=== PATIENT | male | born 1985 | race Asian ===

== ENCOUNTER 2016-04-13 16:49 | Emergency (ER) | payer OTHER ==
[2016-04-13 17:01] VITALS: BP 131/78
[2016-04-13 18:03] LABS: Basophils % (Auto) 0.6 % (0.0-1.8); Eosinophils % (Auto) 4.2 % (0.0-4.3); Hematocrit 45.1 % (35.5-45.6); Hemoglobin 15.5 gm/dl (11.8-15.2); Mean Corpuscular HGB Conc 34 % (32-34); Mean Corpuscular Hemoglobin 31 pg (28-32); Mean Corpuscular Volume 89 fl (84-94); Platelet Count 225 K/mm3 (140-440); Red Blood Count 5.09 M/mm3 (3.65-5.03); Red Cell Distribution Width 12.3 % (13.2-15.2); White Blood Count 9.7 K/mm3 (4.5-11.0)
[2016-04-13 18:13] LABS: Anion Gap 17 mmol/L; BUN/Creatinine Ratio 17.14; Blood Urea Nitrogen 12 mg/dL (9-20); Calcium 9.4 mg/dL (8.4-10.2); Carbon Dioxide 28 mmol/L (22-30); Chloride 98.4 mmol/L (98-107); Glucose 121 mg/dL (75-100); Potassium 3.8 mmol/L (3.6-5.0); Sodium 140 mmol/L (137-145)
== END 2016-04-13 20:00 | disposition left against medical advice (07) ==
LOC: ED 16:49
DX: R07.9 Chest pain, unspecified (principal); R10.9 Unspecified abdominal pain; Z53.21 Procedure and treatment not carried out due to patient leaving prior to being seen by health care provider
CPT/HCPCS: 36415; 80048; 84484; 85025; 93005; 93010

== ENCOUNTER 2016-04-14 09:45 | Emergency (ER) | payer OTHER ==
[2016-04-14 10:21] LABS: Basophils % (Auto) 0.2 % (0.0-1.8); Eosinophils % (Auto) 3.5 % (0.0-4.3); Hematocrit 46.5 % (35.5-45.6); Hemoglobin 15.3 gm/dl (11.8-15.2); Mean Corpuscular HGB Conc 33 % (32-34); Mean Corpuscular Hemoglobin 30 pg (28-32); Mean Corpuscular Volume 90 fl (84-94); Platelet Count 219 K/mm3 (140-440); Red Blood Count 5.19 M/mm3 (3.65-5.03); Red Cell Distribution Width 12.3 % (13.2-15.2); White Blood Count 11.3 K/mm3 (4.5-11.0)
[2016-04-14 10:25] LABS: Bilirubin,Urine NEG (Negative); Blood,Urine NEG (Negative); Ketones,Urine NEG (Negative); Leukocyte Esterase,Urine NEG (Negative); Mucus,Urine 3+ /HPF; Nitrite,Urine NEG (Negative); Protein,Urine <15 mg/dL mg/dL (Negative); Urobilinogen,Urine < 2.0 mg/dL (<2.0)
[2016-04-14 10:36] LABS: Alanine Aminotransferase 16 units/L (7-56); Albumin 4.2 g/dL (3.9-5); Albumin/Globulin Ratio 1.4 %; Alkaline Phosphatase 87 units/L (35-129); Anion Gap 17 mmol/L; BUN/Creatinine Ratio 18.57; Bilirubin,Total 0.4 mg/dL (0.1-1.2); Blood Urea Nitrogen 13 mg/dL (9-20); Carbon Dioxide 24 mmol/L (22-30); Chloride 100.5 mmol/L (98-107); Glucose 105 mg/dL (75-100); Lipase 13 units/L (13-60); Potassium 4.4 mmol/L (3.6-5.0); Sodium 137 mmol/L (137-145); Total Protein 7.1 g/dL (6.3-8.2)
[2016-04-14] MEDS ORDERED: NACL 0.9% 1000 ML 1,000 ML IV ONE (10:50)
[2016-04-14] MEDS ORDERED: ZOFRAN IV ONE ×2 (10:50→11:57)
[2016-04-14] MEDS ORDERED: MORPHINE IV ONE (10:50)
[2016-04-14] MEDS ORDERED: PROTONIX IV ONE (11:57)
[2016-04-14] MEDS ORDERED: DILAUDID IV ONE (11:57)
--- NOTE | 2016-04-14 11:57 | Cat Scan Report ---
CT SCAN OF THE ABDOMEN AND PELVIS WITH CONTRAST: HISTORY: Right upper quadrant abdominal pain, epigastric pain. TECHNIQUE: Helical CT in 1.25mm intervals following IV contrast. Sagittal and coronal reconstructions. FINDINGS: The liver is normal in size and is without focal defect. No gallstones or biliary dilatation are noted. The spleen and pancreas demonstrate a normal size and attenuation with no evidence of abnormal mass. The kidneys are normal in size and position with no evidence of hydronephrosis or mass. The adrenal glands are normal. There is no intestinal obstruction or ascites. Normal appendix. The abdominal aorta is normal. No abnormalities are identified within the retroperitoneum or mesentery. There is no evidence of peritoneal air or fluid. There is no evidence of any abnormal masses or fluid collections within the pelvis. No adenopathy is identified. The bladder is normal. IMPRESSION: Unremarkable CT scan of the abdomen and pelvis with contrast.
--- NOTE | 2016-04-14 13:00 | Emergency Department Report ---
HPI - General Chief Complaint: Abdominal Pain Time Seen by Provider: 04/14/16 10:15 - HPI HPI: The patient is a 30-year-old male who presents for evaluation of abdominal pain. The patient reports epigastric abdominal pain for the past 3 days, waxing and waning for the past one day, 10 out of 10 in severity, sharp and burning in quality, exacerbated with eating. The patient denies fever, chills, night sweats, diarrhea, blood in the stool, dark tarry stool, dysuria, hematuria , flank pain, genital discharge, inability to pass flatus. ED Past Medical Hx - Past Medical History Previous Medical History?: No - Surgical History Past Surgical History?: No - Social History Smoking Status: Current Every Day Smoker Substance Use Type: None - Medications Home Medications: Home Medications Medication Instructions Recorded Confirmed Last Taken Type Acetaminophen/Codeine [Tylenol #3] 1 tab PO Q6H PRN #12 tab 04/14/16 Unknown Rx Omeprazole Magnesium [PriLOSEC Otc] 20 mg PO QDAY #14 tablet. 04/14/16 Unknown Rx Ondansetron [Zofran TAB] 4 mg PO Q8HR PRN #14 tablet 04/14/16 Unknown Rx ED Review of Systems ROS: Stated complaint: ABD PAIN Other details as noted in HPI Constitutional: denies: fever ENT: denies: throat or neck pain Respiratory: denies: cough, shortness of breath Cardiovascular: denies: chest pain Endocrine: denies unexplained weight loss or gain Gastrointestinal: reports abdominal pain Genitourinary: denies: dysuria Musculoskeletal: denies: leg swelling Skin: denies: rash Neurological: denies: headache Hematological/Lymphatic: denies: easy bleeding or easy bruising Psych: denies sadness or hopelessness Physical Exam - Physical Exam Vital Signs: Vital Signs 04/14/16 04/14/16 09:54 10:25 Temperature 98.0 F Pulse Rate 57 L Respiratory 16 17 Rate Blood Pressure 143/94 O2 Sat by Pulse 99 Oximetry Physical Exam: General: well-nourished, well-developed, no acute distress Head: Normocephalic, atraumatic Eyes: normal sclera ENT: Mucous membranes are pale and dry Neck: No neck stiffness, no cervical adenopathy Respiratory: Breath sounds equal bilaterally, no wheezing, rales, or rhonchi Cardio: S1 and S2 present, no murmurs, rubs, gallops, capillary refill is delayed Abdomen: Normoactive bowel sounds, soft abdomen, epigstric tenderness to palpation present, no rigidity, no guarding or rebound tenderness Musc: No pitting edema Skin: No rash Neuro: no facial drooping, normal speech Psych: Normal affect ED Course Vital Signs 04/14/16 04/14/16 09:54 10:25 Temperature 98.0 F Pulse Rate 57 L Respiratory 16 17 Rate Blood Pressure 143/94 O2 Sat by Pulse 99 Oximetry ED Medical Decision Making - Lab Data Result diagrams: 04/14/16 10:01 04/14/16 10:01 - Medical Decision Making The patient was seen and examined by myself. The patient is placed on a cardiac rehabilitation program director and continuous pulse ox. On initial evaluation, the patient was found to be in no distress. Evaluation orders are placed. IV access is established and the patient is given 1 L normal saline fluid bolus and Zofran for nausea, and IV morphine for pain. Lab results revealed elevated RBC, hemoglobin, hematocrit, consistent with hemoconcentration exam findings of dehydration, and otherwise labs were not concerning including electrolytes, renal function, LFTs, lipase, and urinalysis. The patient was reevaluated and reported that his pain persisted. He is given an IV dose of Dilaudid for his pain. The Abdomen and Pelvis Is Negative for Bowel Obstruction, Free Air, Ascites, Appendicitis, or other findings concerning for Emergent intraperitoneal or retroperitoneal disease Process. The patient was again reevaluated and reported that their symptoms were markedly improved. The patient is stable for discharge with outpatient follow-up. The patient is given follow-up and return instructions. The patient expressed understanding and agreed with the plan. The patient is discharged in stable condition. Critical care attestation.: If time is entered above; I have spent that time in minutes in the direct care of this critically ill patient, excluding procedure time. ED Disposition Clinical Impression: Acute abdominal pain in right upper quadrant, Abdominal pain, acute, epigastric , Dehydration Disposition: DISCHARGED TO HOME OR SELFCARE Is pt being admited?: No Does the pt Need Aspirin: No Condition: Stable Instructions: Acute Abdominal Pain (ED), Gastritis (ED), Peptic Ulcer (ED), Diet for Ulcers and Gastritis (ED) Referrals: AME PICKENS MD [Primary Care Provider] - 3-5 Days Time of Disposition: 12:11
[2016-04-14 13:24] VITALS: BP 120/79
== END 2016-04-14 13:24 | disposition home or self-care (01) ==
LOC: ED 09:45
DX: R10.13 Epigastric pain (principal); R10.11 Right upper quadrant pain; E86.0 Dehydration; F17.200 Nicotine dependence, unspecified, uncomplicated; Z79.899 Other long term (current) drug therapy
CPT/HCPCS: 36415; 74177; 80053; 81001; 83690; 85025; 96361; 96374; 96375; 96376; 99284; C9113; J1170; J2270; J2405; J7030; Q9967